=== PATIENT | female | born 1970 | race Caucasian/White ===

== ENCOUNTER 2017-01-11 10:06 | Outpatient (CLI) | payer BC ==
--- NOTE | 2017-01-11 11:16 | MMO ---
BILATERAL SCREENING MAMMOGRAM: HISTORY: A 46-year-old female for screening mammography. COMPARISON: 01/11/16, 12/09/14, 11/11/13. FINDINGS: Bilateral MLO and CC views of the breasts show scattered fibroglandular breast tissue. A benign-matteo earing calcification was seen in the right breast. There is no evidence of suspicious mass, suspici ous clustered microcalcifications, or area of architectural distortion. Interpretation of this mammogram was performed with the assistance of computer-aided detection. IMPRESSION: BI-RADS category 2 - benign findings. Annual screening mammography is recommended. POS: [id number]
== END 2017-01-11 10:07 | disposition home or self-care (01) ==
LOC: MAMMO 10:06
PROVIDERS: ATTEND Family Medicine
DX: Z12.31 Encounter for screening mammogram for malignant neoplasm of breast (principal)
CPT/HCPCS: 77067; G0202

== ENCOUNTER 2018-02-01 12:04 | Outpatient (CLI) | payer BC | END 2018-02-01 12:05 | disposition home or self-care (01) | LOC: BICMAMMO 12:04 | PROVIDERS: ATTEND Family Medicine | DX: Z12.31 Encounter for screening mammogram for malignant neoplasm of breast (principal) | CPT/HCPCS: 77063; 77067 ==

== ENCOUNTER 2018-11-14 10:00 | Outpatient (CLI) | payer BC ==
[2018-11-14 10:52] LABS: Hemoglobin 13.8 g/dL (12.0-16.0); Mean Corpuscular HGB CONC 34.2 g/dL (32.0-36.0); Mean Corpuscular Hemoglobin 31.5 pg (27.0-31.0); Mean Corpuscular Volume 92.2 fL (78.0-98.0); Platelet Count 267 thou/uL (130-400); Prothrombin Time 12.9 SEC (12.0-14.7); RBC Distribution Width 10.9 % (11.5-14.5); Red Blood Cell (RBC) Count 4.39 mill/uL (4.20-5.40); White Blood Cell (WBC) Count 7.2 thou/uL (4.8-10.8)
[2018-11-14 11:38] LABS: PTT 22.8 SEC (22.9-36.1)
--- NOTE | 2018-11-14 11:51 | RAD ---
PA AND LATERAL VIEWS CHEST: Date: 11/14/18 HISTORY: Preop evaluation. FINDINGS: Heart size is normal. Lungs are expanded without lobar consolidation, pneumothoraces, mass, or pleura l effusions. There are mild degenerative changes in the spine. IMPRESSION: No significant abnormalities are seen. POS: [facility]
== END 2018-11-14 10:01 | disposition home or self-care (01) ==
LOC: SCSEKG 10:00
DX: Z01.812 Encounter for preprocedural laboratory examination (principal)
CPT/HCPCS: 36415; 71046; 85027; 85610; 85730

== ENCOUNTER 2019-01-21 09:52 | Outpatient (CLI) | payer BC ==
--- NOTE | 2019-01-21 10:39 | MMO ---
Bilateral MAMMO Bilat Diag [facility]. CLINICAL HISTORY: Patient is 48 years old and is seen for diagnostic exam and lump or thickening in the outer region of the left breast. The patient has no family history of breast cancer. The patient has no personal history of cancer. The patient has a history of right Excisional Biopsy in 2003 - benign. VIEWS: The views performed were: bilateral craniocaudal with tomosynthesis; bilateral mediolateral oblique with tomosynthesis; and bilateral mediolateral with tomosynthesis. FILMS COMPARED: The present examination has been compared to prior imaging studies performed at [facility] on 04/04/2006, 03/05/2009, 02/01/2018 and 01/21/2019. This study has been interpreted with the assistance of computer-aided detection. MAMMOGRAM FINDINGS: There are scattered fibroglandular densities. Ultrasound of the palpable findings in the left breast showed no abnormality. There are no suspicious masses, suspicious calcifications, or new areas of architectural distortion. IMPRESSION: THERE IS NO MAMMOGRAPHIC EVIDENCE OF MALIGNANCY. A ROUTINE FOLLOW-UP MAMMOGRAM IN 1 YEAR IS RECOMMENDED. THE RESULTS OF THIS EXAM WERE SENT TO THE PATIENT. ACR BI-RADS Category 2 - Benign finding MAMMOGRAPHY NOTE: 1. A negative mammogram report should not delay a biopsy if a dominant of clinically suspicious mass is present. 2. Approximately 10% to 15% of breast cancers are not detected by mammography. 3. Adenosis and dense breasts may obscure an underlying neoplasm. Reported by: KAREN CALDERA MD Electonically Signed: [id number]
--- NOTE | 2019-01-21 12:07 | ULT ---
LEFT BREAST ULTRASOUND: Date: 01/21/19 HISTORY: Palpable abnormalities at the 2 and 3 o'clock positions of the left breast. FINDINGS: Correlation is made with mammogram same date. No sonographic abnormality is seen at the region of palpable concern in the 2 and 3 o'clock position of left breast. IMPRESSION: BI-RADS Category 2 - Benign findings. Return to annual mammographic screening. POS: OFF
== END 2019-01-21 09:53 | disposition home or self-care (01) ==
LOC: BICMAMMO 09:52
PROVIDERS: ATTEND Family Medicine
DX: N63.20 Unspecified lump in the left breast, unspecified quadrant (principal)
CPT/HCPCS: 77066; G0279

== ENCOUNTER 2020-03-31 14:59 | Outpatient (CLI) | payer BC ==
--- NOTE | 2020-03-31 16:15 | MMO ---
Bilateral MAMMO Bilat Screen [facility]. CLINICAL HISTORY: Patient is 49 years old and is seen for screening. The patient has no family history of breast cancer. The patient has no personal history of cancer. The patient has a history of right Excisional Biopsy in 2002 - benign. VIEWS: The views performed were: bilateral craniocaudal with tomosynthesis and bilateral mediolateral oblique with tomosynthesis. FILMS COMPARED: The present examination has been compared to prior imaging studies performed at [facility] on 03/05/2009, 02/01/2018 and 01/21/2019. This study has been interpreted with the assistance of computer-aided detection. MAMMOGRAM FINDINGS: There are scattered fibroglandular densities. There are no suspicious masses, suspicious calcifications, or new areas of architectural distortion. IMPRESSION: THERE IS NO MAMMOGRAPHIC EVIDENCE OF MALIGNANCY. A ROUTINE FOLLOW-UP MAMMOGRAM IN 1 YEAR IS RECOMMENDED. THE RESULTS OF THIS EXAM WERE SENT TO THE PATIENT. ACR BI-RADS Category 1 - Negative MAMMOGRAPHY NOTE: 1. A negative mammogram report should not delay a biopsy if a dominant of clinically suspicious mass is present. 2. Approximately 10% to 15% of breast cancers are not detected by mammography. 3. Adenosis and dense breasts may obscure an underlying neoplasm. Reported by: KAREN CALDERA MD Electonically Signed: [id number]
== END 2020-03-31 15:00 | disposition home or self-care (01) ==
LOC: BICMAMMO 14:59
PROVIDERS: ATTEND Family Medicine
DX: Z12.31 Encounter for screening mammogram for malignant neoplasm of breast (principal); Z91.89 Other specified personal risk factors, not elsewhere classified
CPT/HCPCS: 77063; 77067

== ENCOUNTER 2021-04-22 10:36 | Outpatient (CLI) | payer BC | END 2021-04-22 10:37 | disposition home or self-care (01) | LOC: BICMAMMO 10:36 | PROVIDERS: ATTEND Family Medicine | DX: Z12.31 Encounter for screening mammogram for malignant neoplasm of breast (principal); Z91.89 Other specified personal risk factors, not elsewhere classified | CPT/HCPCS: 77063; 77067 ==